=== PATIENT | male | born 1925 | race Caucasian/White ===

== ENCOUNTER 2017-03-10 19:32 | Observation (INO) | payer MEDICARE, MEDICAID ==
[~2017-03-10] VITALS: Ht 177.8 cm; Wt 87.6 kg
--- NOTE | 2017-03-10 21:10 | REPUSA ---
CT of the head Clinical history: loss of consciousness. Protocol: Multiple axial CT images obtained with 5 mm slice thickness were obtained through the head without administration of contrast. Comparison: None. Findings: The ventricles and sulci are symmetric but prominent in size bilaterally. There are periven tricular areas of low attenuation throughout the deep white matter. There is no evidence of acute hem orrhage or infarct. There is no midline shift, mass effect, or extra-axial fluid collection. The osse ous structures are unremarkable. The visualized paranasal sinuses and mastoid air cells are clear. Impression: No acute hemorrhage or infarct. Findings are consistent with moderate age-related atrophy and chronic small vessel ischemic disease.
[2017-03-10 21:45] LABS: BASO # 0.1 K/mm3 (0.0-0.2); BASO % 0.9 % (0.0-1.0); EOS # 0.2 K/mm3 (0.0-0.50); EOS % 1.8 % (0.0-3.0); LARGE UNSTAINED CELL # 0.1 K/mm3 (0.0-0.4); LARGE UNSTAINED CELL % 1.5 % (0.0-4.0); LYMPH # 1.8 K/mm3 (1.5-4.5); LYMPH % 18.1 % (24.0-44.0); MEAN CORPUSCULAR HGB CONC 33.1 g/dl (32.0-36.5); MEAN CORPUSCULAR VOLUME 93.6 fl (80.0-96.0); MONO # 0.6 K/mm3 (0.0-0.8); MONO % 6.3 % (0.0-5.0); NEUTROPHILS # 6.4 K/mm3 (1.8-7.7); NEUTROPHILS % 71.5 % (36.0-66.0); PLATELET COUNT, AUTOMATED 160 k/mm3 (150-450); RED CELL DISTRIBUTION WIDTH 13.8 % (11.5-14.5); WHITE BLOOD COUNT 8.9 K/mm3 (4.0-10.0)
[2017-03-10 22:03] LABS: ANION GAP 7 MEQ/L (8-16); BLOOD UREA NITROGEN 13 MG/DL (7-18); CALCIUM LEVEL 8.4 MG/DL (8.8-10.2); CARBON DIOXIDE LEVEL 28 MEQ/L (21-32); CHLORIDE LEVEL 105 MEQ/L (98-107); CREATININE FOR GFR 0.53 MG/DL (0.70-1.30); GLOMERULAR FILTRATION RATE > 60.0 (>35); GLUCOSE, FASTING 117 MG/DL (83-110); POTASSIUM SERUM 4.1 MEQ/L (3.5-5.1); SODIUM LEVEL 140 MEQ/L (136-145)
[2017-03-10] MEDS ORDERED: ASPIRIN 325 MG TAB PO ONE (22:30)
[2017-03-10] MEDS ORDERED: TRAV04OPD OU (22:35)
[2017-03-10] MEDS ORDERED: ONDANSETRON 4MG/2ML VIAL (J2405) IV PRN (23:30)
[2017-03-10] MEDS ORDERED: ACETAMINOPHEN TAB 650MG DOSE (2X325MG) PO PRN (23:30)
[2017-03-10] MEDS ORDERED: BISACODYL 5 MG TAB PO PRN (23:30)
[2017-03-10 23:50] LABS: CHOLESTEROL LEVEL 233 MG/DL (<200); TRIGLYCERIDES LEVEL 63 MG/DL (<150)
[2017-03-11] VITALS (8 sets, daily range): BP systolic 107–158; BP diastolic 57–83
--- NOTE | 2017-03-11 00:40 | REPUSA ---
CLINICAL HISTORY: Transient ischemic attack. COMMENTS: Real time sonography with duplex doppler of the carotid arteries bilaterally was performed. Bilateral atheromatous plaques in the common carotid arteries extending to the internal and external carotid arteries. Normal peak systolic velocities. Antegrade flow in the vertebral arteries. IMPRESSION: Bilateral less than 50% stenosis of the internal carotid artery secondary to atheromatous plaques. Thank you for your kind referral of this patient.
[2017-03-11] MEDS: LATANOPROST 0.005% OPHTH SOLN 2.5 ML OU SCH ×2 (01:12→21:08)
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
[2017-03-11 07:37] LABS: BASO # 0.2 K/mm3 (0.0-0.2); EOS # 0.2 K/mm3 (0.0-0.50); EOS % 2.3 % (0.0-3.0); LARGE UNSTAINED CELL # 0.1 K/mm3 (0.0-0.4); LARGE UNSTAINED CELL % 1.4 % (0.0-4.0); LYMPH # 2.1 K/mm3 (1.5-4.5); LYMPH % 26.1 % (24.0-44.0); MEAN CORPUSCULAR HEMOGLOBIN 31.3 pg (27.0-33.0); MEAN CORPUSCULAR HGB CONC 33.6 g/dl (32.0-36.5); MEAN CORPUSCULAR VOLUME 93.4 fl (80.0-96.0); MONO # 0.6 K/mm3 (0.0-0.8); MONO % 8.1 % (0.0-5.0); NEUTROPHILS # 4.6 K/mm3 (1.8-7.7); NEUTROPHILS % 60.1 % (36.0-66.0); PLATELET COUNT, AUTOMATED 176 k/mm3 (150-450); RED CELL DISTRIBUTION WIDTH 13.9 % (11.5-14.5); WHITE BLOOD COUNT 7.7 K/mm3 (4.0-10.0)
[2017-03-11 08:03] LABS: ALBUMIN 3.7 GM/DL (3.2-5.2); ALBUMIN/GLOBULIN RATIO 1.12 (1.00-1.93); ALKALINE PHOSPHATASE 68 U/L (45-117); ALT/SGPT 19 U/L (12-78); ANION GAP 7 MEQ/L (8-16); AST/SGOT 17 U/L (15-37); BILIRUBIN,TOTAL 0.7 MG/DL (0.2-1.0); BLOOD UREA NITROGEN 14 MG/DL (7-18); CALCIUM LEVEL 8.8 MG/DL (8.8-10.2); CARBON DIOXIDE LEVEL 25 MEQ/L (21-32); CHLORIDE LEVEL 108 MEQ/L (98-107); CREATININE FOR GFR 0.51 MG/DL (0.70-1.30); GLOMERULAR FILTRATION RATE > 60.0 (>35); GLUCOSE, FASTING 116 MG/DL (83-110); MAGNESIUM LEVEL 2.1 MG/DL (1.8-2.4); POTASSIUM SERUM 3.6 MEQ/L (3.5-5.1); SODIUM LEVEL 140 MEQ/L (136-145)
[2017-03-11] MEDS: ASPIRIN 81 MG ENTERIC TAB PO SCH (08:59)
[2017-03-11] MEDS: ENOXAPARIN 40 MG/0.4 ML SYRINGE (J1650) SC SCH (08:59)
[2017-03-11] MEDS ORDERED: LORazepam 1 MG TAB PO STA (11:48)
--- NOTE | 2017-03-11 18:03 | IPNPDOC ---
Subjective Date Seen The patient was seen on 03/11/17. Subjective Chief Complaint/HPI The patient is a 89-year-old male admitted with a reason for visit of TIA. Events since last encounter Feeling well, symptoms resolved, speach normal, tolerating diet, willing to try mri Constitutional: Denies: Chills, Fever Pulmonary: Denies: Dyspnea, Cough Cardiovascular: Denies: Chest Pain Gastrointestinal: Denies: Nausea, Vomiting, Abdominal Pain Objective Physical Examination General Exam: Positive: Alert, Cooperative Eye Exam: Negative: Sclera icteric Chest Exam: Positive: Clear to auscultation, Negative: Rales, Rhonchi, Wheezing Heart Exam: Positive: Rate Normal, Regular Rhythm, Normal S1, Normal S2 Abdomen Exam: Positive: Normal bowel sounds, Soft, Negative: Tenderness Extremity Exam: Negative: Edema Neuro Exam: Positive: Normal Gait, Normal Speech, Strength at 5/5 X4 ext, Normal Tone, Sensation Intact Assessment /Plan Problems (1) Transient ischemic attack Status: Acute Problem Text: Resolved symptoms- MRI ordered'attempted- may need to repeat ct scan in followup neurology consulted neurochecks orders pt on telemetry - statin may not be useful in this instance- defer to reservoir engineering consultant (2) Hyperglycemia Problem Text: normal hemoglobin a1c- likely stress response Plan/VTE VTE Prophylaxis Ordered?: Yes VS[facility] Signs/I&O Vital Signs Date Time Temp Pulse Resp B/P (MAP) Pulse Ox O2 Delivery O2 Flow Rate FiO2 03/11/17 16:00 98.0 100 18 120/62 (81) 98 Room Air I&O- Last 24 Hours up to 6 AM 03/11/17 06:00 Intake Total 0 ml Output Total 0 ml Balance 0 ml Laboratory Data 24H LABS Laboratory Tests 2 03/10/17 21:31: White Blood Count 8.9, Red Blood Count 4.95, Hemoglobin 15.3, Hematocrit 46.3, Mean Corpuscular Volume 93.6, Mean Corpuscular Hemoglobin 31.0, Mean Corpuscular Hemoglobin Concent 33.1, Red Cell Distribution Width 13.8, Platelet Count 160, Neutrophils (%) (Auto) 71.5H, Lymphocytes (%) (Auto) 18.1L, Monocytes (%) (Auto) 6.3H, Eosinophils (%) (Auto) 1.8, Basophils (%) (Auto) 0.9 , Neutrophils # (Auto) 6.4, Lymphocytes # (Auto) 1.8, Monocytes # (Auto) 0.6, Eosinophils # (Auto) 0.2, Basophils # (Auto) 0.1, Large Unclassified Cells % 1.5 , Large Unclassified Cells # 0.1, Anion Gap 7L, Glomerular Filtration Rate > 60.0, Estimated Mean Plasma Glucose 114H, Hemoglobin A1c 5.6, Blood Urea Nitrogen 13, Creatinine 0.53L, Sodium Level 140, Potassium Level 4.1, Chloride Level 105, Carbon Dioxide Level 28, Calcium Level 8.4L, Triglycerides Level 63, LDL Cholesterol 178.4H, Total Cholesterol 233H, Non-HDL Cholesterol (LDL + VLDL ) 191, Total HDL Cholesterol 42, Cholesterol/HDL Ratio 5.547H 03/11/17 07:04: White Blood Count 7.7, Red Blood Count 4.93, Hemoglobin 15.4, Hematocrit 46.0, Mean Corpuscular Volume 93.4, Mean Corpuscular Hemoglobin 31.3, Mean Corpuscular Hemoglobin Concent 33.6, Red Cell Distribution Width 13.9, Platelet Count 176, Neutrophils (%) (Auto) 60.1, Lymphocytes (%) (Auto) 26.1, Monocytes ( %) (Auto) 8.1H, Eosinophils (%) (Auto) 2.3, Basophils (%) (Auto) 2.0H, Neutrophils # (Auto) 4.6, Lymphocytes # (Auto) 2.1, Monocytes # (Auto) 0.6, Eosinophils # (Auto) 0.2, Basophils # (Auto) 0.2, Large Unclassified Cells % 1.4 , Large Unclassified Cells # 0.1, Anion Gap 7L, Glomerular Filtration Rate > 60.0, Blood Urea Nitrogen 14, Creatinine 0.51L, Sodium Level 140, Potassium Level 3.6, Chloride Level 108H, Carbon Dioxide Level 25, Calcium Level 8.8, Aspartate Amino Transf (AST/SGOT) 17, Alanine Aminotransferase (ALT/SGPT) 19, Alkaline Phosphatase 68, Total Bilirubin 0.7, Total Protein 7.0, Albumin 3.7, Magnesium Level 2.1, Albumin/Globulin Ratio 1.12 CBC/BMP Laboratory Tests 03/10/17 21:31 Red Blood Count 4.95, Mean Corpuscular Volume 93.6, Mean Corpuscular Hemoglobin 31.0, Mean Corpuscular Hemoglobin Concent 33.1, Red Cell Distribution Width 13.8 , Neutrophils (%) (Auto) 71.5 H, Lymphocytes (%) (Auto) 18.1 L, Monocytes (%) ( Auto) 6.3 H, Eosinophils (%) (Auto) 1.8, Basophils (%) (Auto) 0.9, Neutrophils # (Auto) 6.4, Lymphocytes # (Auto) 1.8, Monocytes # (Auto) 0.6, Eosinophils # ( Auto) 0.2, Basophils # (Auto) 0.1, Calcium Level 8.4 L 03/11/17 07:04 Red Blood Count 4.93, Mean Corpuscular Volume 93.4, Mean Corpuscular Hemoglobin 31.3, Mean Corpuscular Hemoglobin Concent 33.6, Red Cell Distribution Width 13.9 , Neutrophils (%) (Auto) 60.1, Lymphocytes (%) (Auto) 26.1, Monocytes (%) (Auto ) 8.1 H, Eosinophils (%) (Auto) 2.3, Basophils (%) (Auto) 2.0 H, Neutrophils # ( Auto) 4.6, Lymphocytes # (Auto) 2.1, Monocytes # (Auto) 0.6, Eosinophils # (Auto ) 0.2, Basophils # (Auto) 0.2, Calcium Level 8.8, Aspartate Amino Transf (AST/ SGOT) 17, Alanine Aminotransferase (ALT/SGPT) 19, Alkaline Phosphatase 68, Total Bilirubin 0.7, Total Protein 7.0, Albumin 3.7 SENA LEWIS MD March 11, 2017 18:03
[2017-03-11] MEDS ORDERED: ATORVASTATIN 20 MG TAB PO SCH (21:00)
[2017-03-12 04:00] VITALS: BP 156/78
[2017-03-12 05:42] LABS: BASO # 0.1 K/mm3 (0.0-0.2); EOS # 0.2 K/mm3 (0.0-0.50); EOS % 3.3 % (0.0-3.0); LARGE UNSTAINED CELL # 0.1 K/mm3 (0.0-0.4); LARGE UNSTAINED CELL % 1.5 % (0.0-4.0); LYMPH # 1.8 K/mm3 (1.5-4.5); MEAN CORPUSCULAR HEMOGLOBIN 31.3 pg (27.0-33.0); MEAN CORPUSCULAR HGB CONC 33.4 g/dl (32.0-36.5); MEAN CORPUSCULAR VOLUME 93.8 fl (80.0-96.0); MONO # 0.7 K/mm3 (0.0-0.8); MONO % 9.6 % (0.0-5.0); NEUTROPHILS # 4.4 K/mm3 (1.8-7.7); NEUTROPHILS % 61.5 % (36.0-66.0); PLATELET COUNT, AUTOMATED 157 k/mm3 (150-450); RED CELL DISTRIBUTION WIDTH 13.9 % (11.5-14.5); WHITE BLOOD COUNT 7.2 K/mm3 (4.0-10.0)
[2017-03-12 06:05] LABS: ALBUMIN 3.3 GM/DL (3.2-5.2); ALKALINE PHOSPHATASE 58 U/L (45-117); ALT/SGPT 19 U/L (12-78); ANION GAP 6 MEQ/L (8-16); AST/SGOT 22 U/L (15-37); BILIRUBIN,TOTAL 0.5 MG/DL (0.2-1.0); BLOOD UREA NITROGEN 11 MG/DL (7-18); CALCIUM LEVEL 8.3 MG/DL (8.8-10.2); CARBON DIOXIDE LEVEL 27 MEQ/L (21-32); CHLORIDE LEVEL 111 MEQ/L (98-107); CREATININE FOR GFR 0.54 MG/DL (0.70-1.30); GLOMERULAR FILTRATION RATE > 60.0 (>35); GLUCOSE, FASTING 111 MG/DL (83-110); MAGNESIUM LEVEL 2.1 MG/DL (1.8-2.4); POTASSIUM SERUM 3.6 MEQ/L (3.5-5.1); SODIUM LEVEL 144 MEQ/L (136-145); TOTAL PROTEIN 6.3 GM/DL (6.4-8.2)
[2017-03-12 07:40] VITALS: BP_SYST 156; BP_DIAS 76; BP_DIAS 78
--- NOTE | 2017-03-12 08:29 | ECGEPIP ---
Stationary ECG Study [facility] - ED Test Date: 2017-03-10 Pat Name: TANI ROLLE Department: Room: [place] [address] Gender: M Outpatient Physical Therapist: maria r : [id number] Requested By: TRE HEARD Order Number: [id number] Reading MD: Sowmya Yepez Measurements Intervals [place] Rate: 104 P: 43 AK: 181 QRS: -27 QRSD: 97 T: 54 QT: 338 QTc: 445 Interpretive Statements SINUS TACHYCARDIA BORDERLINE LEFT AXIS DEVIATION MODERATE ST DEPRESSION BASELINE ARTIFACT LIMITS INTERPRETATION NO PRIOR FOR COMPARISON Electronically Signed On 03-12-2017 8:29:39 EDT by Sowmya Yepez
[2017-03-12] MEDS: ASPIRIN 81 MG ENTERIC TAB PO SCH (08:37)
[2017-03-12] MEDS: ENOXAPARIN 40 MG/0.4 ML SYRINGE (J1650) SC SCH (08:38)
--- NOTE | 2017-03-12 09:59 | REP ---
NONCONTRAST HEAD CT STUDY: HISTORY: Repeat head CT. History of TIA. Comparison head CT study March 10, 2017. FINDINGS: Bone window settings remain unremarkable. Visualized paranasal sinuses are clear. No intraorbital abnormality is seen. There is vascular calcification in the distal vertebral and distal carotid arteries moderate in degree. There is moderate diffuse cerebral atrophy again noted. Bill-white differentiation pattern is intact. No infarct is visible. There is no evidence of hemorrhage, extra-axial fluid collection, mass, or midline shift. IMPRESSION: Moderate diffuse atrophy. Vascular calcification. No acute intracranial lesion. Signed by Joce Langley MD 03/12/2017 10:26 A
[2017-03-12] MEDS ORDERED: ATOR1TAB21 PO (12:11)
[2017-03-12] MEDS ORDERED: ASPI81TAEC PO (12:11)
--- NOTE | 2017-03-13 10:13 | IPN ---
DATE: 03/12/2017 Mr. Kaplan is feeling well today. He has no complaints of pain. No difficulty with swallowing. No change in his voice. No weakness. No paresthesias. He did well overnight. Temperature 98.2, pulse 105, respiratory rate 18, blood pressure 156/76, 98% on room air. Ins and outs notable for a positive fluid balance of 730. No bowel movements noted. He has been up and walking with assistance with a rolling walker. He was initially somewhat confused about where he was this morning. When I asked him where he was, he said home. I pointed to the computer at the bedside and said do you have a computer at your bedside at home and he said, "Oh wait, I am in the hospital". Neck supple. Breathing symmetrical and rested. Heart is in a regular rate and rhythm. No significant arrhythmia. Sinus rhythm on the monitor. Abdomen soft, doughy and nontender. Strength is symmetrical. White cell count 7.2, hemoglobin 14.2. ASSESSMENT: This is an 89-year-old with transient ischemic attack (TIA) which has resolved. PLAN: 1. Neurologic. TIA. I have discussed this case by phone with neurology. The plan is for discharge today. Followup of CT scan of the head today with no changes. No evidence for arrhythmia on telemetry. Will continue with an aspirin and statin drug at the time of discharge. 2. Patient had hyperglycemia at the time of presentation, most likely represents a stress response. Fasting glucose is somewhat elevated, but hemoglobin A1c is within reasonable range. This can be followed as an outpatient. 3. Patient can followup with Dr. Holliday on 03/18/2017 at 11:00. 4. Patient can followup with Dr. Burns, he is to call for further information. 5. I did discuss this case by phone with the patient's daughter, Brooke, who is in support of the discharge plan for today.
--- NOTE | 2017-03-15 08:04 | ECHO ---
DATE OF PROCEDURE: 03/11/2017 AGE: 89 GENDER: Male HEIGHT: 70 inches WEIGHT: 180 pounds BODY SURFACE AREA: 2.0 meter squared LOCATION: Inpatient, progressive care unit (PCU), room 3226 REFERRING PHYSICIAN: Kelvin INDICATION: Transient ischemic attack, question cardiac origin. MEASUREMENTS: 2-D measurements: RV: 3.9 cm LV: 3.9 cm Septum 1.2 cm Posterior wall 1.2 cm Aortic root 4.1 cm LA 3.8 cm LVEF of 75% DOPPLER MEASUREMENTS: AV: 1.28 cm per second LVOT: 0.93 meters per second MVE 49, A 89, EA ratio 0.6 Early mitral deceleration time 137 E prime 6.4, A prime 15, EE prime ratio 7.7 PV: 0.8 meters per second Pulmonary artery acceleration time 106 milliseconds PASP 31 mmHg IVC 1.5 cm COMMENT: Normal sinus rhythm without intraventricular conduction disturbance. Technically challenging study but diagnostically useful information was still obtained. Left atrial size upper limits of normal to slightly dilated but normal left ventricular size. The right ventricle was upper limits of normal in size but the right atrium appeared to be mildly dilated. His inferior vena cava was of normal size. LV wall thickness was upper limits of normal to mildly hypertrophied. On real-time imaging from the parasternal and apical projections, wall motion was symmetrical and hyperkinetic. Mildly thickened mitral annulus but normal leaflet thickness and excursion with no posterior systolic buckling. Three equal size aortic cusps with moderate cusp thickening but adequate cusp separation. Mildly dilated aortic root. No apparent intracardiac mass or pericardial effusion. Color flow Doppler study taken from the parasternal and projection showed trace tricuspid but no mitral insufficiency. There was mild to moderate aortic insufficiency. Guided continuous wave Doppler of his aortic valve showed a normal peak systolic velocity against LV outflow tract obstruction. Pulsed and continuous wave Doppler of his LV inflow tract taken from the apical four-chamber projection showed normal diastolic filling velocities against mitral stenosis. There was more prominent late diastolic/atrial dependent filling pattern. His early mitral deceleration time was somewhat abbreviated and diastolic dysfunction was further confirmed using tissue Doppler of his mitral annulus. However, his current estimated mean left atrial pressure was within normal limits. Pulsed and continuous wave Doppler of his pulmonary trunk showed a normal peak systolic velocity against RV outflow tract obstruction. His pulmonary artery acceleration time was abbreviated consistent with at least a slightly increased pulmonary vascular resistance. His estimated pulmonary artery systolic pressure was upper limits of normal to slightly increased. We attempted to further estimate his right ventricular systolic pressure using guided continuous wave Doppler of his tricuspid valve but could not get a clear spectral envelope. His inferior vena cava was of normal size with normal respiratory collapse against an elevated central venous pressure. CONCLUSIONS: 1. Somewhat technically difficult study. 2. Borderline concentric left ventricle hypertrophy with hyperkinetic wall motion. 3. Borderline left atrial enlargement with Doppler evidence of impairment of LV diastolic function but currently normal estimated mean left atrial pressure. 4. Right ventricle upper limits of normal in size with normal contraction but Doppler evidence of at least borderline pulmonary hypertension. 5. Mildly dilated right atrium but normal IVC size and collapse against an elevated central venous pressure. 6. Mildly dilated aortic root with moderate aortic valvular sclerosis but no stenosis and mild to moderate insufficiency. 7. Mild mitral annular thickening but no functional valvular abnormality. If a cardiac source of embolic material is seriously suspect, we would recommend a transesophageal echocardiogram to further define valvular structures.
--- NOTE | 2017-03-31 12:58 | CR ---
DATE OF CONSULTATION: 03/12/2017 CONSULTATION REPORT FOR: Dr. Ramon Yanez HISTORY OF PRESENT ILLNESS: Amado Kaplan is an 89-year-old right-handed male who was seen in [facility] on 03/11/2017 for evaluation of a fall and slurred speech. The patient states he is back to his baseline self. The patient was extremely claustrophobic and did not want to have an MRI. A head CT was obtained which did not reveal any acute intracranial pathology. It was recommended that the patient have a repeat head CT the following day. The patient did have a head CT and it did not show any acute intracranial change. The patient states that he does have some baseline unsteadiness in his gait. He does have significant weakness in his legs. He has difficulty ambulating. He was asked to continue aspirin 81 mg daily. The patient states that he does not have any dysarthria, dysphasia, vertigo, dizziness, lightheadedness, weakness other than his baseline weakness. He denies any change in vision. He is quite anxious and wishes to go home. REVIEW OF SYSTEMS: 14-point review of systems obtained and is negative except as per history of present illness (HPI). ALLERGIES: None. CURRENT MEDICATIONS: - aspirin 81 mg by mouth daily - Travatan eye drops each eye daily - atorvastatin daily - levothyroxine 25 mcg daily SOCIAL HISTORY: The patient quit tobacco 50 years ago. He denies use of any alcohol or illicit drugs. FAMILY HISTORY: Noncontributory. PAST MEDICAL HISTORY: History of stroke. PAST SURGICAL HISTORY: Fractured ankle. PHYSICAL EXAMINATION: Blood pressure is 120/62, pulse rate 100, respiratory rate is 18, temperature is 98 degrees Fahrenheit, oxygenation 98% on room air. Current height 70 inches, current weight 86.2 kg. The patient is alert and oriented to person, place and time. Speech, language, comprehension, and repetition are intact. Pupils are 2 mm round, reactive to light. Extraocular movements are intact in all directions. Sensation V1, V2 and V3 is intact to light touch. No facial asymmetry on activation. Palate elevates symmetrically. Tongue is midline. No weakness of sternocleidomastoids. No pronator drift. Strength is 5/5 including bilateral deltoids, biceps, triceps, handgrip, iliopsoas are both 3+, quadriceps are also significantly weak. He has a longstanding history of proximal leg weakness, including hip flexor and knee extensor as well as ankle extensor weakness. Deep tendon reflexes are 2+ and symmetric with downgoing plantar responses. Sensory is intact to light touch in all four extremities. The patient ambulates with a cautious gait, leaning forward using a walker. There is no ataxia or dysmetria on examination. ASSESSMENT: An 89-year-old male with episode of dysarthria and unsteady gait resulting in fall, possibly secondary to a transient ischemic attack (TIA). PLAN: 1. Continue aspirin 81 mg daily and statin therapy daily. 2. Continue telemetry monitoring. 3. Recommend repeat head CT tomorrow morning. 4. Continue physical therapy (PT) and occupational therapy (OT). 5. The patient can followup at the [facility] upon discharge. The patient is back to his baseline state.
== END 2017-03-12 14:53 | disposition home or self-care (01) ==
LOC: EDBD 19:32 → M ED 21:12 → M ED INP 23:00 → M PCU 03-11 14:13
PROVIDERS: ADMIT Hospitalist; ATTEND Internal Medicine
DX: G45.9 Transient cerebral ischemic attack, unspecified (principal); R73.9 Hyperglycemia, unspecified; H40.9 Unspecified glaucoma; F17.210 Nicotine dependence, cigarettes, uncomplicated
CPT/HCPCS: 36415; 70450; 80048; 80053; 80061; 83036; 83735; 85025; 93005; 93306; 93880; 96372; 97161; 99284; G0378; G8978; G8979; G8980; J1650

== ENCOUNTER 2017-03-13 16:38 | Emergency (ER) | payer MEDICARE, MEDICAID ==
[~2017-03-13] VITALS: Ht 177.8 cm; Wt 77.1 kg
[~2017-03-13 16:38] MED LIST: ASPI81TAEC PO; ATOR1TAB21 PO; TRAV04OPD OU
[2017-03-13 16:42] VITALS: BP 141/75
== END 2017-03-13 18:16 | disposition left against medical advice (07) ==
LOC: EDBD 16:38 → M ED 17:26
DX: G45.9 Transient cerebral ischemic attack, unspecified (principal); E78.5 Hyperlipidemia, unspecified; Z86.73 Personal history of transient ischemic attack (TIA), and cerebral infarction without residual deficits; Z79.82 Long term (current) use of aspirin

== ENCOUNTER → 2017-03-23 | Outpatient (CLI) | payer MEDICARE, MEDICAID ==
--- NOTE | 2017-03-23 15:11 | REP ---
CT HEAD WITHOUT CONTRAST: HISTORY: Transient ischemic attack. COMPARISON: 03/12/2017 Areas of decreased attenuation are present in the periventricular white matter. This represents small vessel ischemic disease. There is no intraparenchymal hemorrhage, mass or midline shift. The ventricular system and cortical sulci as well as subarachnoid space in the posterior fossa are dilated consistent with moderate volume loss. There is no extracerebral collection. The visualized sinuses are clear. IMPRESSION: 1. Small vessel ischemic disease. 2. Mild volume loss. Signed by Av Bullock MD 03/23/2017 03:30 P
== END ==
LOC: M RAD 14:27
PROVIDERS: ATTEND Psychiatry & Neurology Neurology
DX: G45.9 Transient cerebral ischemic attack, unspecified (principal); I73.9 Peripheral vascular disease, unspecified